=== PATIENT | female | born 1945 | race Two or more races ===

== ENCOUNTER 2022-04-18 10:49 | Inpatient (IN) | payer OTHER ==
[~2022-04-18] VITALS: Ht 165.1 cm; Wt 72.6 kg
[~2022-04-18 10:49] MED LIST: ALTACE5 MG; SIMVASTATIN80 MG
[2022-04-18] MEDS ORDERED: LISINOPRIL20 MG (10:53)
[2022-04-18] MEDS ORDERED: MONTELUKAST SOD10 MG (10:53)
--- NOTE | 2022-04-18 10:56 | NUR ---
PTE ALERTA Y ORIENTADA POR AXEL ESFERAS REFIERE QUE GALLARDO ESTADO TENIENDO DIFICULTAD AL RESPIRAR, FUE A SAMANIEGO MEDICO PRIMARIO EL LUNES FLORENCIO NO GALLARDO TENIDO MEJORA.
--- NOTE | 2022-04-18 12:16 | NUR ---
SE ORIENTA PTE SOBRE TX A SEGUIR, EL CUAL REFIERE ENTENDER. SE COLECTAN MUESTRAS Y SE CANALIZA PTE UTILIZANDO MEDIDAS ASEPTICAS. SE ADM. [facility] ORDEN MEDICA.
--- NOTE | 2022-04-18 12:40 | NUR ---
SE LE REALLIZA EKG A PTE Y SE LO EVALUA LA DECLAN JOE.
[2022-04-20] MEDS ORDERED: CETIRIZINE HCL10 MG (15:18)
[2022-04-20] MEDS ORDERED: ATORVASTATIN CA40 MG (15:18)
[2022-04-20] MEDS ORDERED: PREDNISOLO15 MG/5 ML (15:18)
[2022-04-20] MEDS ORDERED: MUCUS RELIEF400 MG (15:18)
[2022-04-20] MEDS ORDERED: FLEXGEN TABLET1 EACH (15:18)
== END 2022-04-23 21:38 | disposition home or self-care (01) | DRG 202 ==
LOC: ER 10:49 → EDSEX 18:07 → MEDJ 18:07
PROVIDERS: ADMIT Internal Medicine; ATTEND Internal Medicine
PROC: BW24ZZZ Computerized Tomography (CT Scan) of Chest and Abdomen (ICD-10-PCS; principal; 2022-04-18)
DX: J45.51 Severe persistent asthma with (acute) exacerbation (principal); J18.9 Pneumonia, unspecified organism; R06.02 Shortness of breath; R09.02 Hypoxemia; E78.5 Hyperlipidemia, unspecified; I10 Essential (primary) hypertension; Z20.822 Contact with and (suspected) exposure to COVID-19

== ENCOUNTER → 2022-06-11 | Outpatient (CLI) | payer OTHER ==
[~2022-06-11] MED LIST changes: +ATORVASTATIN CA40 MG; +CETIRIZINE HCL10 MG; +FLEXGEN TABLET1 EACH; +LISINOPRIL20 MG; +MONTELUKAST SOD10 MG; +MUCUS RELIEF400 MG; +PREDNISOLO15 MG/5 ML
== END | disposition home or self-care (01) ==
LOC: TOM 09:56
PROVIDERS: ATTEND Internal Medicine Pulmonary Disease
DX: J30.1 Allergic rhinitis due to pollen (principal); J45.50 Severe persistent asthma, uncomplicated; R06.02 Shortness of breath

== ENCOUNTER 2022-11-06 05:58 | Inpatient (IN) | payer OTHER ==
[~2022-11-06] VITALS: Ht 152.4 cm; Wt 70.8 kg
[2022-11-23] MEDS ORDERED: XOPENEX HFA15 GM IH (09:04)
[2022-11-23] MEDS ORDERED: MEDROLPACK PO (09:05)
[2022-11-23] MEDS ORDERED: INTESTINEX680 M1 PO (09:05)
[2022-11-23] MEDS ORDERED: PEPCID AC20 MG PO (09:06)
[2022-11-23] MEDS ORDERED: TRELEGY ELLIPT1 EACH IH (09:12)
== END 2022-11-23 09:53 | disposition home or self-care (01) | DRG 202 ==
LOC: ER 05:58 → MEDJ 19:27 → ICU 11-12 13:12 → MEDJ 11-15 18:33
PROVIDERS: ADMIT Internal Medicine; ATTEND Internal Medicine
PROC: 3E0F7GC Introduction of Other Therapeutic Substance into Respiratory Tract, Via Natural or Artificial Opening (ICD-10-PCS; 2022-11-06)
PROC: 3E0F7SF Introduction of Other Gas into Respiratory Tract, Via Natural or Artificial Opening (ICD-10-PCS; 2022-11-06)
PROC: B246ZZZ Ultrasonography of Right and Left Heart (ICD-10-PCS; 2022-11-07)
PROC: BB24ZZZ Computerized Tomography (CT Scan) of Bilateral Lungs (ICD-10-PCS; principal; 2022-11-10)
PROC: 4A12X4Z Monitoring of Cardiac Electrical Activity, External Approach (ICD-10-PCS; 2022-11-12)
PROC: 5A0945A Assistance with Respiratory Ventilation, 24-96 Consecutive Hours, High Flow/Velocity Cannula (ICD-10-PCS; 2022-11-12)
DX: J45.901 Unspecified asthma with (acute) exacerbation (principal); I47.1 Supraventricular tachycardia; J84.9 Interstitial pulmonary disease, unspecified; J44.1 Chronic obstructive pulmonary disease with (acute) exacerbation; J45.902 Unspecified asthma with status asthmaticus; E88.09 Other disorders of plasma-protein metabolism, not elsewhere classified; T48.6X5A Adverse effect of antiasthmatics, initial encounter; T38.0X5A Adverse effect of glucocorticoids and synthetic analogues, initial encounter; I10 Essential (primary) hypertension; E78.00 Pure hypercholesterolemia, unspecified; Z20.822 Contact with and (suspected) exposure to COVID-19; Y92.230 Patient room in hospital as the place of occurrence of the external cause; Z77.22 Contact with and (suspected) exposure to environmental tobacco smoke (acute) (chronic)

== ENCOUNTER 2024-03-06 07:22 | Outpatient (CLI) | payer OTHER ==
[~2024-03-06 07:22] MED LIST changes: +INTESTINEX680 M1 PO; +MEDROLPACK PO; +PEPCID AC20 MG PO; +TRELEGY ELLIPT1 EACH IH; +XOPENEX HFA15 GM IH
== END 2024-03-06 07:23 | disposition home or self-care (01) ==
LOC: NUCLEAR 07:22
PROVIDERS: ATTEND Internal Medicine
DX: I20.9 Angina pectoris, unspecified (principal)
CPT/HCPCS: 78452; 93017; A9500